=== PATIENT | female | born 1990 | race Caucasian/White ===

== ENCOUNTER 2019-02-21 13:12 | Emergency (ER) | payer OTHER ==
[2019-02-21 13:22] VITALS: BMI 30.2
--- NOTE | 2019-02-21 14:01 | ED PDOC ---
Arrival/HPI <Kavon Vann - Last Filed: 02/21/19 22:28> - General Historian: Patient - History of Present Illness Narrative History of Present Illness (Text): 14:01 28 y/o female with PMH of DM presents to the ED c/o fatigue x 2 days. Associated nausea and intermittent periumbilical abdominal pain. Believes she is and wants to confirm her . Seen at [facility] earlier this afternoon, discharge instructions are for schizoaffective disorder. Pt states she missed her most recent psychiatrist appointment. LMP 01/20/19. Admits to multiple positive at home tests. Denies SI/HI, drug/alcohol use, fever, chills, vomiting, diarrhea, constipation, cough, congestion, headache, neck pain, dizziness, back pain, or any other associated symptoms. <Clara Gordon - Last Filed: 02/22/19 22:18> - General Chief Complaint: Female Genitourinary Time Seen by Provider: 02/21/19 13:13 Past Medical History - Provider Review Nursing Documentation Reviewed: Yes - Endocrine/Metabolic Hx Diabetes Mellitus Type 2: Yes - Psychiatric Hx Substance Use: No <Clara Gordon - Last Filed: 02/22/19 22:18> Family/Social History - Physician Review Nursing Documentation Reviewed: Yes Family/Social History: No Known Family HX Smoking Status: Never Smoked Hx Alcohol Use: Yes Frequency of alcohol use: Socially Hx Substance Use: No <Clara Gordon - Last Filed: 02/22/19 22:18> Allergies/Home Meds <Kavon Vann - Last Filed: 02/21/19 22:28> <Clara Gordon - Last Filed: 02/22/19 22:18> Allergies/Adverse Reactions: Allergies Penicillins Allergy (Verified 02/21/19 13:23) RASH walnut Allergy (Verified 02/21/19 13:23) RASH Review of Systems - Review of Systems Constitutional: Fatigue. absent: Fevers Eyes: Normal. absent: Vision Changes ENT: Normal. absent: Sore Throat, Sinus Congestion Respiratory: Normal. absent: SOB, Cough Cardiovascular: Normal. absent: Chest Pain, Palpitations Gastrointestinal: Normal. absent: Abdominal Pain, Nausea, Vomiting Genitourinary Female: Normal. absent: Dysuria, Frequency, Vaginal Bleeding, Vaginal Discharge Musculoskeletal: Normal. absent: Back Pain, Neck Pain Skin: Normal. absent: Rash Neurological: Normal. absent: Headache, Dizziness <Clara Gordon - Last Filed: 02/22/19 22:18> Physical Exam Vital Signs Temp Pulse Resp BP Pulse Ox 02/21/19 17:19 76 19 145/85 100 02/21/19 14:04 99.3 F 02/21/19 13:12 99.7 F H 115 H 18 130/91 H 97 <Kavon Vann - Last Filed: 02/21/19 22:28> Vital Signs Reviewed: Yes Vital Signs Temp Pulse Resp BP Pulse Ox 02/21/19 13:12 99.7 F H 115 H 18 130/91 H 97 Temperature: Afebrile Blood Pressure: Normal Pulse: Tachycardic Respiratory Rate: Normal Appearance: Positive for: Non-Toxic, Uncomfortable Pain Distress: None Mental Status: Positive for: Alert and Oriented X 3 - Systems Exam Head: Present: Atraumatic, Normocephalic Pupils: Present: PERRL Extroacular Muscles: Present: EOMI Conjunctiva: Present: Normal Mouth: Present: Moist Mucous Membranes Neck: Present: Normal Range of Motion. No: Meningeal Signs Respiratory/Chest: Present: Clear to Auscultation, Good Air Exchange. No: Respiratory Distress, Accessory Muscle Use Cardiovascular: Present: Normal S1, S2, Peripheal Pulses Present, Tachycardic Abdomen: Present: Tenderness (mild LLQ), Normal Bowel Sounds. No: Distention, Peritoneal Signs Back: Present: Normal Inspection. No: CVA Tenderness Upper Extremity: Present: Normal Inspection, Normal ROM. No: Cyanosis, Edema Lower Extremity: Present: Normal Inspection, Normal ROM. No: Edema Neurological: Present: GCS=15, Speech Normal, Motor Func Grossly Intact, Normal Sensory Function, Gait Normal Skin: Present: Warm, Dry, Normal Color. No: Rashes Psychiatric: Present: Alert, Oriented x 3, Anxious. No: Normal Affect (bizarre affect), Suicidal Ideation, Homicidal Ideation <Clara Gordon - Last Filed: 02/22/19 22:18> Medical Decision Making ED Course and Treatment: 02/21/19 22:28 Pt seen and evaluated by [facility] screeners and re-evaluated by [facility], pt cleared for discharge home with outpatient follow-up. Pt agreeable with plan. - Lab Interpretations Lab Results: PT 12.4 SECONDS (9.4-12.5) 02/21/19 13:59 INR 1.12 02/21/19 13:59 APTT 31.5 Seconds (26.9-38.3) 02/21/19 13:59 Total Bilirubin 0.6 mg/dL (0.2-1.3) 02/21/19 13:59 AST 40 U/L (14-36) H 02/21/19 13:59 ALT 54 U/L (7-56) 02/21/19 13:59 Alkaline Phosphatase 90 U/L (38-126) 02/21/19 13:59 Total Protein 8.8 g/dL (5.8-8.3) H 02/21/19 13:59 Albumin 4.6 g/dL (3.0-4.8) 02/21/19 13:59 Globulin 4.2 gm/dL 02/21/19 13:59 Albumin/Globulin Ratio 1.1 (1.1-1.8) 02/21/19 13:59 Urine Color Yellow (YELLOW) 02/21/19 17:21 Urine Appearance Sl cloudy (CLEAR) 02/21/19 17:21 Urine pH 6.5 (4.7-8.0) 02/21/19 17:21 Ur Specific [place] 1.020 (1.005-1.035) 02/21/19 17:21 Urine Protein 100 mg/dL (<30 mg/dL) H 02/21/19 17:21 Urine Glucose (UA) Negative mg/dL (NEGATIVE) 02/21/19 17:21 Urine Ketones Negative mg/dL (NEGATIVE) 02/21/19 17:21 Urine Blood Negative (NEGATIVE) 02/21/19 17:21 Urine Nitrate Negative (NEGATIVE) 02/21/19 17:21 Urine Bilirubin Negative (NEGATIVE) 02/21/19 17:21 Urine Urobilinogen 0.2 E.U./dL (<1 E.U./dL) 02/21/19 17:21 Ur Leukocyte Esterase Negative Paula/uL (NEGATIVE) 02/21/19 17:21 Urine RBC 1 - 3 /hpf (0-2) H 02/21/19 17:21 Urine WBC 1 - 3 /hpf (0-6) 02/21/19 17:21 Ur Epithelial Cells 6 - 8 /hpf (0-5) H 02/21/19 17:21 Amorphous Sediment Few /hpf (NONE) 02/21/19 17:21 Urine Bacteria Many /hpf (NONE) 02/21/19 17:21 Coarse Granular Casts Trace /hpf (NONE) 02/21/19 17:21 Urine Other Uyeast /hpf 02/21/19 17:21 Urine HCG, Qual Negative (NEGATIVE) 02/21/19 17:21 Beta HCG, Quant < 2.39 mIU/mL (0-6.15) 02/21/19 13:59 Urine HCG, Qual Negative (NEGATIVE) 02/21/19 17:21 - RAD Interpretation Radiology Orders: 02/21/19 13:27 OB TRANSVAGINAL [US] Stat 02/21/19 15:51 ABD & PELVIS IV CONTRAST ONLY [CT] Stat 02/21/19 16:51 CHEST PORTABLE [RAD] Stat - Medication Orders Current Medication Orders: Discontinued Medications Acetaminophen (Tylenol 325mg Tab) 650 mg PO STAT STA Stop: 02/21/19 14:09 Last Admin: 02/21/19 14:33 Dose: Not Given Non-Admin Reason: Patient Refused Sodium Chloride (Sodium Chloride 0.9%) 1,000 mls @ 999 mls/hr IV .Q1H1M STA Stop: 02/21/19 14:28 Last Admin: 02/21/19 17:13 Dose: 999 mls/hr eMAR Start Stop Document 02/21/19 17:13 [email or web address] (Rec: 02/21/19 17:14 [email or web address] [id number]) Intravenous Solution Start Date 02/21/19 Start Time 17:14 <Kavon Vann - Last Filed: 02/21/19 22:28> ED Course and Treatment: 13:59 Initial Plan: * Labs * UA, POC * beta hcg quant * Transvaginal US * IVF 14:07 Pt refusing POC preg test Pt tachycardic with complaints of nausea and fatigue. Will obtain bloodwork. Quant hcg will be added. 14:20 Pt with bizarre affect, threatening nursing staff. Spoke with ED attending who recommends PES evaluation. Pt refusing urine and further bloodwork. 14:52 Bloodwork reviewed, mild leukocytosis of 11.8 with left shift. Glucose elevated, fluids ordered. Otherwise unremarkable. 15:37 Beta quant hcg negative (<2.39), patient in ultrasound Patient seen by PES worker Fartun. Pt is to be a candidate for [facility] screening secondary to delusions and bizarre affect. Pt refusing examination and IVF. States she has no abdominal pain or nausea. It was intended that patient undergo transvaginal ultrasound after hcg result, either in blood or urine, however pt was sent to ultrasound prior to result. Radiologist read the ultrasound in the context of an OB study with the history of early , however hcg resulted as <2.39. 16:00 Beta quant hcg negative, pt updated on results. Spoke with Dr. Andersen, radiologist who states that with new context, it is highly unlikely that cystic mass in uterus is a gestational sac, as the hcg quant should be at least mildly elevated if that were the case. Pt continues to be tachycardic with LLQ tenderness and complaints of nausea and lightheadedness. Secondary to vitals, complaints, and leukocytosis with left shift, CT scan ordered. 16:39 Spoke with OBGYN lubrication supervisor Dr. Gordillo and discussed case and diagnostic testing results. States that patient is cleared for CT scan despite US reading and that patient is not based on negative hcg level despite ultrasound read. Discussed case and diagnostic testing results in their entirety with ED attending Dr. Harding who agrees with plan of care and disposition, including d ecision to proceed with CT scan to rule out dangerous intra-abdominal pathology. 18:30 CT scan negative for acute pathology, shows right ovarian cyst. Urine and CXR negative Pending EKG, drug screen 19:10 EKG shows NSR at [address]/T wave changes. Patient is medically cleared for psychiatric screening. 19:40 Advised by RADHA Willoughby that [facility] screener will come to evaluate patient. Information faxed. Pt updated with change in disposition, willing to wait for [facility] screener. Diet ordered. 20:50 [facility] requesting official documentation regarding discrepancy in report vs. hcg level. Spoke with OBGYN lubrication supervisor Dr. Re Cobian who states that because hcg < 2.39, patient is NOT , despite ultrasound reading. Ultrasound was read in the incorrect context. There is no situation in which the ultrasound would show positive for gestational sac with a negative quantitative hcg level. Spoke with Carrie from [facility] and cleared up discrepancy, reiterated that patient is NOT . Case signed out to night team, Dr. Vann, pending [facility] screening, reassessment and disposition. Night team understands that patient needs gynecological followup if discharged home. Pt resting comfortably in stretcher with stable vitals at this time. - Lab Interpretations Lab Results: 02/21/19 13:59 02/21/19 13:59 Lab Results 02/21/19 13:59: Blood Type Pending, Antibody Screen Pending, BBK History Checked No verified bt 02/21/19 13:59: Beta HCG, Quant < 2.39 02/21/19 13:59: Sodium 140, Potassium 3.8, Chloride 103, Carbon Dioxide 25, Anion Gap 16, BUN 13, Creatinine 0.6 L, Est GFR ( Amer) > 60, Est GFR (Non-Af Amer) > 60, Random Glucose 206 H, Calcium 9.4, Total Bilirubin 0.6, AST 40 H, ALT 54, Alkaline Phosphatase 90, Total Protein 8.8 H, Albumin 4.6, Globulin 4.2, Albumin/Globulin Ratio 1.1 02/21/19 13:59: PT 12.4, INR 1.12, APTT 31.5 02/21/19 13:59: WBC 11.8 H, RBC 4.46, Hgb 12.6, Hct 39.0, MCV 87.4, MCH 28.3, MCHC 32.3, RDW 13.3, Plt Count 428, MPV 8.9, Neut % (Auto) 71.4 H, Lymph % (Au to) 20.0 L, [place] % (Auto) 7.1 H, Eos % (Auto) 1.2 L, Baso % (Auto) 0.3, Lymph # (Auto) 2.4, [place] # (Auto) 0.8 H, Eos # (Auto) 0.1, Baso # (Auto) 0.03, Absolute Neuts (auto) 8.43 H I have reviewed the lab results: Yes - RAD Interpretation Narrative RAD Interpretations (Text): 02/21/19 18:46 CT Abd/Pelvis: FINDINGS: LOWER THORAX: Unremarkable. LIVER: Diffuse hepatic steatosis. No gross lesion or ductal dilatation. GALLBLADDER AND BILE DUCTS: Unremarkable. PANCREAS: Unremarkable. No gross lesion or ductal dilatation. SPLEEN: Unremarkable. ADRENALS: Unremarkable. No mass. KIDNEYS AND URETERS: 5 mm right lower pole angiomyolipoma. No hydronephrosis. No solid mass. VASCULATURE: Unremarkable. No aortic aneurysm. No aortic atherosclerotic calcification or mural plaque present. BOWEL: Unremarkable. No obstruction. No gross mural thickening. APPENDIX: Normal appendix. PERITONEUM: Unremarkable. No free fluid. No free air. LYMPH NODES: Unremarkable. No enlarged lymph nodes. BLADDER: Unremarkable. REPRODUCTIVE: Involuting right corpus luteal follicle. BONES: No acute fracture. OTHER FINDINGS: None. IMPRESSION: No acute abdominal pelvic pathology. Involuting right corpus luteal follicle. Transvaginal US: FINDINGS: UTERUS: Gestational sac: 5 mm cystic structure within the endometrium, possibly gestational size sac, out of range. Yolk sac and pole not yet identified. Uterus measures 8.4 x 4.4 x 5.6 cm. Normal in size and appearance. CERVIX: Measures 3.7 cm. Long and closed. No cervical abnormality seen. RIGHT OVARY: Measures 4.2 x 3.1 x 3.5 cm. No mass lesion. Normal flow. LEFT OVARY: Measures 3.1 x 2.2 x 2.3 cm. No solid mass. Normal flow. FREE FLUID: None. OTHER FINDINGS: None. IMPRESSION: Possible 5 mm intrauterine gestational sac, out of range. Findings may represent early normal/abnormal with ectopic not excluded. Close clinical follow-up with serial pelvic sonography and serum beta HCG is recommended. CXR: FINDINGS: LUNGS: No active pulmonary disease. PLEURA: No significant pleural effusion identified, no pneumothorax apparent. CARDIOVASCULAR: No aortic atherosclerotic calcification present. Normal cardiac size. No pulmonary vascular congestion. OSSEOUS STRUCTURES: No significant abnormalities. VISUALIZED UPPER ABDOMEN: Normal. OTHER FINDINGS: None. IMPRESSION: No active disease. Radiology Orders: 02/21/19 13:27 TRANSVAGINAL [US] Stat Electrician: Radiologist - EKG Interpretation EKG Interpretation (Text): EKG shows NSR at 86, normal intervals, no STEMI with nonspecific ST/T wave changes. Interpreted by ED Physician: Yes Type: 12 lead EKG - Medication Orders Current Medication Orders: Sodium Chloride (Sodium Chloride 0.9%) 1,000 mls @ 999 mls/hr IV .Q1H1M STA Stop: 02/21/19 14:28 <Clara Gordon - Last Filed: 02/22/19 22:18> - PA / BAND LEADER / Resident Statement / has reviewed & agrees with the documentation as recorded. / has examined the patient and agrees with the treatment plan. <Kavon Vann - Last Filed: 02/21/19 22:28> Disposition/Present on Arrival - Present on Arrival Any Indicators Present on Arrival: No - Disposition Have Diagnosis and Disposition been Completed?: Yes Disposition Time: 22:23 Patient Plan: Discharge <Kavon Vann - Last Filed: 02/21/19 22:28> - Present on Arrival Any Indicators Present on Arrival: No History of DVT/PE: No History of Uncontrolled Diabetes: No Urinary Catheter: No History of Decub. Ulcer: No History Surgical Site Infection Following: None - Disposition Have Diagnosis and Disposition been Completed?: No Disposition Time: 19:30 <Clara Gordon - Last Filed: 02/22/19 22:18> - Disposition Diagnosis: Evaluation by psychiatric service required, Abnormal transvaginal ultrasound Condition: STABLE Additional Instructions: Followup with OBGYN within 2 days Referrals: Rajiv Gordillo [Medical Doctor] - Follow up with primary
[2019-02-21 14:27] LABS: BASO # 0.03 K/mm3 (0.0-2.0); BASO % 0.3 % (0.0-3.0); EOS # 0.1 (0.0-0.7); EOS % 1.2 % (1.5-5.0); HEMOGLOBIN 12.6 g/dL (12.0-16.0); LYMPH # 2.4 (1.2-3.4); MEAN CELL VOLUME 87.4 fl (80.0-105.0); MEAN CORPUSCULAR HEMOGLOBIN 28.3 pg (25.0-35.0); MEAN CORPUSCULAR HGB CONC 32.3 g/dl (31.0-37.0); MEAN PLATELET VOLUME 8.9 fl (7.0-11.0); MONO # 0.8 (0.1-0.6); MONO % 7.1 % (1.0-6.0); RBC 4.46 10^6/uL (3.5-6.1); RED CELL DISTRIBUTION WIDTH 13.3 % (11.5-14.5); WHITE BLOOD COUNT 11.8 10^3/uL (4.5-11.0)
[2019-02-21] MEDS: Sodium Chloride 0.9% 1,000 ML IV STA ×2 (14:32→17:13)
[2019-02-21 14:42] LABS: ALB/GLOB RATIO 1.1 (1.1-1.8); ALBUMIN 4.6 g/dL (3.0-4.8); ALT/SGPT 54 U/L (7-56); AST/SGOT 40 U/L (14-36); BLOOD UREA NITROGEN 13 mg/dL (7-21); CALCIUM 9.4 mg/dL (8.4-10.5); GFR NON-AFRICAN AMERICAN > 60
[2019-02-21 14:46] LABS: INR 1.12; PARTIAL THROMBOPLASTIN TIME 31.5 Seconds (26.9-38.3); PROTHROMBIN TIME 12.4 SECONDS (9.4-12.5)
--- NOTE | 2019-02-21 15:53 | US ---
Date of service: 02/21/2019 PROCEDURE: OB Pelvic Ultrasound HISTORY: OB, LMP 01/20 COMPARISON: None available. FINDINGS: UTERUS: Gestational sac: 5 mm cystic structure within the endometrium, possibly gestational size sac, out of range. Yolk sac and pole not yet identified. Uterus measures 8.4 x 4.4 x 5.6 cm. Normal in size and appearance. CERVIX: Measures 3.7 cm. Long and closed. No cervical abnormality seen. RIGHT OVARY: Measures 4.2 x 3.1 x 3.5 cm. No mass lesion. Normal flow. LEFT OVARY: Measures 3.1 x 2.2 x 2.3 cm. No solid mass. Normal flow. FREE FLUID: None. OTHER FINDINGS: None. IMPRESSION: Possible 5 mm intrauterine gestational sac, out of range. Findings may represent early normal/abnormal with ectopic not excluded. Close clinical follow-up with serial pelvic sonography and serum beta HCG is recommended.
[2019-02-21 16:32] LABS: ACETAMINOPHEN < 10.0 ug/ml (10.0-20.0); SALICYLATE < 1 mg/dL (2.0-20.0)
[2019-02-21] MEDS ORDERED: Iohexol 350 MG/100 ML VIAL ONE (16:48)
--- NOTE | 2019-02-21 18:02 | RAD ---
Date of service: 02/21/2019 HISTORY: pes COMPARISON: No prior. TECHNIQUE: 1 view obtained. FINDINGS: LUNGS: No active pulmonary disease. PLEURA: No significant pleural effusion identified, no pneumothorax apparent. CARDIOVASCULAR: No aortic atherosclerotic calcification present. Normal cardiac size. No pulmonary vascular congestion. OSSEOUS STRUCTURES: No significant abnormalities. VISUALIZED UPPER ABDOMEN: Normal. OTHER FINDINGS: None. IMPRESSION: No active disease.
--- NOTE | 2019-02-21 18:09 | CT ---
Date of service: 02/21/2019 PROCEDURE: CT Abdomen and Pelvis with contrast HISTORY: abd pain COMPARISON: None. TECHNIQUE: Contrast dose: 100 mL Omnipaque 350 Radiation dose: Total exam DLP = 834.83 mGy-cm. This CT exam was performed using one or more of the following dose reduction techniques: Automated exposure control, adjustment of the mA and/or kV according to patient size, and/or use of iterative reconstruction technique. FINDINGS: LOWER THORAX: Unremarkable. LIVER: Diffuse hepatic steatosis. No gross lesion or ductal dilatation. GALLBLADDER AND BILE DUCTS: Unremarkable. PANCREAS: Unremarkable. No gross lesion or ductal dilatation. SPLEEN: Unremarkable. ADRENALS: Unremarkable. No mass. KIDNEYS AND URETERS: 5 mm right lower pole angiomyolipoma. No hydronephrosis. No solid mass. VASCULATURE: Unremarkable. No aortic aneurysm. No aortic atherosclerotic calcification or mural plaque present. BOWEL: Unremarkable. No obstruction. No gross mural thickening. APPENDIX: Normal appendix. PERITONEUM: Unremarkable. No free fluid. No free air. LYMPH NODES: Unremarkable. No enlarged lymph nodes. BLADDER: Unremarkable. REPRODUCTIVE: Involuting right corpus luteal follicle. BONES: No acute fracture. OTHER FINDINGS: None. IMPRESSION: No acute abdominal pelvic pathology. Involuting right corpus luteal follicle.
[2019-02-21 18:11] LABS: PH,URINE 6.5 (4.7-8.0); URINE BILIRUBIN NEGATIVE (NEGATIVE); URINE BLOOD NEGATIVE (NEGATIVE); URINE GLUCOSE (UA) NEGATIVE (NEGATIVE); URINE LEUKOCYTE ESTERASE NEGATIVE Leu/uL (NEGATIVE); URINE PROTEIN 100 mg/dL (<30 mg/dL); URINE UROBILINOGEN 0.2 E.U./dL (<1 E.U./dL)
[2019-02-21 18:16] LABS: URINE APPEARANCE SL CLOUDY (CLEAR); URINE COLOR YELLOW (YELLOW)
[2019-02-21 18:19] LABS: HCG,QUALITATIVE URINE NEGATIVE (NEGATIVE); URINE AMORPHOUS SEDIMENT FEW /hpf; URINE BACTERIA MANY /hpf; URINE COARSE GRANULAR CAST TRACE /hpf
[2019-02-21 18:55] LABS: BARBITURATES, UR NEGATIVE (NEGATIVE); BENZODIAZEPINES, UR NEGATIVE (NEGATIVE); OPIATES, UR NEGATIVE (NEGATIVE); PHENCYCLIDINE, UR NEGATIVE (NEGATIVE)
[2019-02-21 22:49] VITALS: TEMP 98.9
[2019-02-21 23:43] VITALS: BP 122/71; PULSE 78; RESP 19; O2SAT 99
--- NOTE | 2019-02-22 11:45 | CARD ---
APPROVED REPORT Date of service: 02/21/2019 EKG Measurement Heart [id number] <Conclusion> Normal sinus rhythm Normal Electrocardiogram
== END 2019-02-21 23:39 | disposition home or self-care (01) ==
LOC: ED 13:12
DX: Z00.8 Encounter for other general examination (principal); R93.89 Abnormal findings on diagnostic imaging of other specified body structures; E11.9 Type 2 diabetes mellitus without complications
CPT/HCPCS: 71045; 74177; 76817; 80053; 80320; 80324; 80329; 80345; 80346; 80349; 80353; 80358; 80361; 81001; 81025; 83992; 84702; 84703; 85025; 85610; 85730; 86850; 86900; 90791; 93005; 99285; J7030; Q9967